=== PATIENT | male | born 1985 | race Two or more races ===

== ENCOUNTER 2019-06-20 16:14 | Inpatient (IN) | payer MEDICAID ==
[~2019-06-20] VITALS: Ht 170.2 cm; Wt 59.2 kg
[2019-06-20] MEDS ORDERED: BISACODYL 10 MG SUPP PR PRN (16:30)
[2019-06-20] MEDS ORDERED: ACETAMINOPHEN 325 MG TABLET PO PRN (16:30)
[2019-06-20] MEDS ORDERED: POLYETHYLENE GLYCOL 17 GM PACKET PO PRN (16:30)
[2019-06-20] MEDS ORDERED: ONDANSETRON ODT 4 MG PO PRN (16:30)
[2019-06-20] MEDS ORDERED: DOCUSATE 100 MG CAPSULE PO PRN (16:30)
[2019-06-20 16:57] VITALS: BP 121/71
[2019-06-20] MEDS ORDERED: PLEASE ENTER HEIGHT AND WEIGHT MC SCH (17:00)
[2019-06-20] MEDS ORDERED: HALOPERIDOL 2 MG/ML ORAL SOL PO PRN (17:30)
[2019-06-20] MEDS ORDERED: LORazepam 1MG TABLET PO PRN (17:30)
[2019-06-20 19:47] VITALS: BP 121/79
[2019-06-21 05:44] LABS: BASOPHILS # (AUTO) 0.03 x10^3/uL (0-0.1); BASOPHILS % (AUTO) 0 % (0-1); EOSINOPHILS # (AUTO) 0.09 x10^3/uL (0-0.4); EOSINOPHILS % (AUTO) 1 % (1-7); LYMPHOCYTES # (AUTO) 1.89 x10^3/uL (1-3.4); LYMPHOCYTES % (AUTO) 18 % (22-44); MD NO; MEAN CORPUSCULAR HEMOGLOBIN 30.5 pg (27.5-34.5); MEAN CORPUSCULAR HGB CONC 33.3 g/dL (33.2-36.2); MEAN CORPUSCULAR VOLUME 91.3 fL (81-97); MEAN PLATELET VOLUME 9.3 fL (7.4-10.4); MONOCYTES # (AUTO) 0.67 x10^3/uL (0.2-0.8); MONOCYTES % (AUTO) 7 % (2-9); NEUTROPHILS # (AUTO) 7.69 x10^3/uL (1.8-6.8); NEUTROPHILS % (AUTO) 74 % (42-75); PLATELET COUNT 239 x10^3/uL (130-400); RED BLOOD COUNT 5.35 x10^6/uL (4.38-5.82)
[2019-06-21 05:53] LABS: ALBUMIN 4.2 g/dL (3.4-5.0); ANION GAP 5 mmol/L (5-15); CALCIUM 9.2 mg/dL (8.5-10.1); CHLORIDE 107 mmol/L (98-107)
[2019-06-21 06:03] LABS: ALANINE AMINOTRANSFERASE 22 U/L (12-78); ALKALINE PHOSPHATASE 90 U/L (45-117); BILIRUBIN,TOTAL 3.2 mg/dL (0.2-1.0); CHOL/HDL RATIO 3.4; CHOLESTEROL, TOTAL 151 mg/dL (140-239); CREATININE 1.11 mg/dL (0.7-1.3); FREE T4 (FREE THYROXINE) 1.01 ng/dL (0.76-1.46); HDL CHOL % 29 % (26-37); HDL CHOLESTEROL (DIRECT) 44 mg/dL (40-60); LDL CHOLESTEROL,CALCULATED 89 mg/dL (54-169); TOTAL PROTEIN 7.3 g/dL (6.4-8.2); TRIGLYCERIDES 89 mg/dL (50-200); VLDL CHOLESTEROL 18 mg/dL (0-25)
[2019-06-21 06:07] LABS: MICROSCOPIC INDICATED
[2019-06-21 06:17] LABS: CULTURE INDICATED? NO
[2019-06-21 07:08] VITALS: BP 126/70
[2019-06-21 19:16] VITALS: BP 109/63
[2019-06-22 07:09] VITALS: BP 109/73
[2019-06-22 14:55] LABS: BILIRUBIN, DIRECT 0.4 mg/dL (0.1-0.2)
[2019-06-22 14:56] LABS: BILIRUBIN,INDIRECT 3.3 mg/dL (0.0-2.0); BILIRUBIN,TOTAL 3.7 mg/dL (0.2-1.0)
[2019-06-22] MEDS ORDERED: OMNIPAQUE 350 MG/ML, 75ML BOTTLE ONE (18:29)
[2019-06-22 19:07] VITALS: BP 122/72
[2019-06-23 07:00] VITALS: BP 114/65
[2019-06-23 19:15] VITALS: BP 117/65
[2019-06-24 07:09] VITALS: BP 133/75
[2019-06-24 19:04] VITALS: BP 120/72
[2019-06-25 07:20] VITALS: BP 125/80
== END 2019-06-25 10:17 | disposition home or self-care (01) | DRG 750 ==
LOC: 3E 16:15
PROVIDERS: ADMIT Psychiatry & Neurology Psychosomatic Medicine; ATTEND Psychiatry & Neurology Psychosomatic Medicine
DX: F25.0 Schizoaffective disorder, bipolar type (principal); F15.20 Other stimulant dependence, uncomplicated; D72.829 Elevated white blood cell count, unspecified; F12.10 Cannabis abuse, uncomplicated; F22 Delusional disorders; F45.22 Body dysmorphic disorder; R91.1 Solitary pulmonary nodule; M54.9 Dorsalgia, unspecified; F29 Unspecified psychosis not due to a substance or known physiological condition; G89.4 Chronic pain syndrome; Z83.3 Family history of diabetes mellitus; Z86.73 Personal history of transient ischemic attack (TIA), and cerebral infarction without residual deficits
CPT/HCPCS: 36415; 71045; 71260; 80053; 80061; 81001; 82140; 82247; 82248; 84439; 84443; 85025; 93005; Q9967